=== PATIENT | female | born 1930 | race Caucasian/White ===

== ENCOUNTER 2016-09-23 15:13 | Emergency (ER) | payer OTHER, MEDICARE ==
[~2016-09-23] VITALS: Ht 149.9 cm; Wt 73.0 kg
[2016-09-23 16:12] LABS: HEMATOCRIT 41.6 % (36.0-46.0); MCH 30.2 PG (29.0-34.0); MCHC 34.4 G/DL (30.0-36.0); MCV 87.9 FL (83-99); MEAN PLAT.VOLUME 9.9 uM^3 (9.5-12.4); PLATELET COUNT 246 K/uL (156-360); RBC DIS.WIDTH-CV 12.2 % (11.8-14.6); RBC DIS.WIDTH-SD 39.4 % (39-53); RED BLOOD COUNT 4.73 M/uL (3.80-5.20); WHITE BLOOD COUNT 8.9 K/uL (4.1-10.2)
[2016-09-23 16:20] LABS: CHLORIDE 102 mEq/L (99-109); POTASSIUM 3.6 mEq/L (3.7-5.4); SODIUM 138 mEq/L (136-147)
[2016-09-23 16:21] LABS: GLUCOSE 108 mg/dL (70-99); INTER. NORMALIZED RATIO 1.1; PROTHROMBIN TIME 10.8 (9.2-11.2); PTT 26.2 (25-32)
[2016-09-23 16:23] LABS: ANION GAP 14 MEQ/L (2-14)
[2016-09-23 16:25] LABS: GFR ESTIMATE (CALCULATED) 56 mL/min/
[2016-09-23 16:26] LABS: UREA NITROGEN (BUN) 17 mg/dL (9-23)
[2016-09-23] MEDS ORDERED: KEFLEX500 MG PO (19:08)
[2016-09-23 20:43] VITALS: BP 128/68
== END 2016-09-23 20:43 | disposition home or self-care (01) ==
LOC: EME → EDBD 15:13 → EME 15:13
PROVIDERS: Emergency Medicine
DX: S81.812A Laceration without foreign body, left lower leg, initial encounter (principal); S81.831A Puncture wound without foreign body, right lower leg, initial encounter; V09.09XA Pedestrian injured in nontraffic accident involving other motor vehicles, initial encounter; Z23 Encounter for immunization; I10 Essential (primary) hypertension
CPT/HCPCS: 71010; 72170; 73564; 73590; 73610; 80048; 85027; 85610; 85730; 86850; 86900; 86901; 93005; 99281; 99285; J2270